=== PATIENT | male | born 1990 | race Caucasian/White ===

== ENCOUNTER 2017-08-25 16:58 | Inpatient (IN) | payer OTHER ==
[2017-08-25 17:28] LABS: % IMMATURE GRANULYOCYTES 0.4 % (0.0-1.1); ABSOLUTE IMMATURE GRANULOCYTES 0.04 10^3/uL (0.00-0.10); ADD DIFF? NO; ADD MORPH? NO; ADD SCAN? NO; ATYPICAL LYMPHOCYTE FLAG 10 (0-99); FRAGMENT RBC FLAG 0 (0-99); HEMATOCRIT 47.6 % (40.0-51.0); HEMOGLOBIN 17.3 g/dL (13.7-17.5); LEFT SHIFT FLG 0 (0-99); LIPEMIA HEMOLYSIS FLAG 90 (0-99); MEAN CELL HEMOGLOBIN 31.1 pg (27.9-34.1); MEAN CELL HEMOGLOBIN CONCENTR. 36.3 g/dL (32.4-36.7); MEAN CELL VOLUME 85.6 fL (81.5-99.8); MEAN PLATELET VOLUME 10.2 fL (8.7-11.7); PLATELET CLUMPS FLAG 10 (0-99); PLATELET COUNT 274 10^3/uL (150-400); RED BLOOD CELL COUNT 5.56 10^6/uL (4.40-6.38); RED CELL DISTRIBUTION WIDTH 11.8 % (11.5-15.2)
--- NOTE | 2017-08-25 17:31 | EDPHY ---
H & P Stated Complaint: M1 - Medical/Surgical History Other PMH: denies. - Social History Smoking Status: Never smoked Time Seen by Provider: 08/25/17 17:31 Constitutional: Initial Vital Signs Temperature (C) 37.0 C 08/25/17 17:35 Heart Rate 68 08/25/17 17:35 Respiratory Rate 18 08/25/17 17:35 Blood Pressure 159/80 H 08/25/17 17:35 O2 Sat (%) 95 08/25/17 17:35 O2 Delivery Mode Room Air Allergies/Adverse Reactions: No Known Allergies Allergy (Unverified 08/25/17 17:23) Medical Decision Making ED Course/Re-evaluation: CHIEF COMPLAINT: Psychiatric evaluation HISTORY OF PRESENT ILLNESS: 26-year-old gentleman who is having some anger issues at home. He has been having some difficulties living on his own. His family has requested that he come to the emergency department and had him brought here. He apparently supposed to be taking some psychiatric medicines and seen a psychiatrist but he has not followed through with that. Patient denies suicidality homicidality. REVIEW OF SYSTEMS: A 10 point review of systems was performed and is negative with the exception of the elements mentioned in the history of present illness. PHYSICAL EXAM: General Appearance: Alert, well hydrated, appropriate, and non-toxic appearing. Head: Atraumatic without scalp tenderness or obvious injury Eyes: Pupils equal, round, reactive to light and accommodation, EOMI, no trauma , no injection. Ears: Clear bilaterally, no perforation, normal landmarks Nose: Atraumatic, no rhinorrhea, clear. Throat: There is no erythema or exudates, no lesions, normal tonsils, mucus membranes moist. Neck: Supple, 2+ carotid upstroke, nontender, no lymphadenopathy. Respiratory: No retractions, no distress, no wheezes, and no accessory muscle use. Lungs are clear to auscultation bilaterally. Cardiovascular: Regular rate and rhythm, no murmurs, rubs, or gallops. Bilateral carotid, radial, dorsalis pedis, and posterior tibial pulses intact. Good capillary refill all extremities. Gastrointestinal: Abdomen is soft, nontender, non-distended, no masses, no rebound, no guarding, no peritoneal signs. Musculoskeletal: Normal active ROM of all extremities, atraumatic. Neurological: Alert, appropriate, and interactive. The patient has normal DTRs and non-focal cranial nerves, motor, sensory, and cerebellar exam. Skin: No rashes, good turgor, no nodules on palpation. Past medical history: Psychiatric problems Past surgical history: Noncontributory Family history: Noncontributory Social history: Single, employed, Student, lives on her own DIFFERENTIAL DIAGNOSIS: The differential diagnosis for the patient's depression included but was not limited to functional and major depression, situational depression, medication side effect, drugs, and alcohol abuse. MEDICAL DECISION MAKING: Patient is in no acute distress and is hemodynamically stable. We are awaiting psychiatric team's evaluation. Patient has known history of psychiatric disorders and is here for evaluation. (Chinedu Calloway) Other Provider: I assumed care of this patient from Dr. Calloway at 9:00 p.m.. At 11:15 p.m., the patient has been medically cleared and is undergoing evaluation with [facility]. He has on a M1 hold placed by the police. Patient had presented with anger management issues, delusions, and is a danger to himself. Care was assumed by Dr. Dominga Waldron at 11:20 p.m. (Annalee Galvez) The patient was stable throughout my shift. He was accepted at [address] [place] [address] for inpatient hospitalization. I completed the EMTALA form. (Dominga Waldron) - Data Points Laboratory Results: Laboratory Results 08/25/17 17:10 08/25/17 17:10 08/25/17 21:30 Urine Opiates Screen NEGATIVE (NEGATIVE) Urine Barbiturates NEGATIVE (NEGATIVE) Ur Phencyclidine Scrn NEGATIVE (NEGATIVE) Ur Amphetamine Screen NEGATIVE (NEGATIVE) U Benzodiazepines Scrn NEGATIVE (NEGATIVE) Urine Cocaine Screen NEGATIVE (NEGATIVE) U Marijuana (THC) Screen NEGATIVE (NEGATIVE) Medications Given: Discontinued Medications Lorazepam (Ativan) 1 mg PO EDNOW ONE Stop: 08/26/17 02:08 Last Admin: 08/26/17 02:11 Dose: 1 mg Departure - Departure Disposition: [facility] IP Clinical Impression: Acute psychosis Condition: Good
[2017-08-25 17:35] LABS: ANION GAP 15 mEq/L (8-16); CALCIUM 10.2 mg/dL (8.5-10.4); CARBON DIOXIDE 20 mEq/l (22-31); CHLORIDE 109 mEq/L (97-110); CREATININE 1.1 mg/dL (0.7-1.3); ETHANOL SERUM < 10 mg/dL (0-10); GLOMERULAR FILTRATION RATE > 60; GLUCOSE 89 mg/dL (70-100); POTASSIUM 3.8 mEq/L (3.5-5.2); SODIUM 144 mEq/L (134-144)
[2017-08-26] MEDS ORDERED: LORazepam 1 MG TAB PO ONE (02:07)
[2017-08-26] MEDS ORDERED: MAG HYDROX/AL HYDROX/SIMETH 30 ML UDCUP PO PRN (03:58)
[2017-08-26] MEDS ORDERED: NICOTINE POLACRILEX 2 MG GUM B PRN (03:58)
[2017-08-26] MEDS ORDERED: ACETAMINOPHEN 325 MG TAB PO PRN (03:58)
[2017-08-26] MEDS ORDERED: LORazepam 0.5 MG TAB PO PRN (03:58)
[2017-08-26] MEDS ORDERED: MAGNESIUM HYDROXIDE 30 ML UDCUP PO PRN (03:58)
[2017-08-26] MEDS ORDERED: FLU VACC QS 2017-18 (3YR+)/PF 0.5 ML SYR (FLUARIX QUAD) IM ONE (09:38)
[2017-08-26] MEDS ORDERED: LORazepam 1 MG TAB PO PRN (10:51)
[2017-08-26] MEDS: SERTRALINE HCL 25 MG TAB PO SCH (11:20)
[2017-08-26] MEDS: ARIPiprazole 5 MG TAB PO SCH (11:20)
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
[2017-08-27] MEDS: SERTRALINE HCL 25 MG TAB PO SCH (08:43)
[2017-08-27] MEDS: ARIPiprazole 5 MG TAB PO SCH (08:43)
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
[2017-08-27] MEDS ORDERED: ARIPiprazole 5 MG TAB PO ONE (09:45)
[2017-08-28] MEDS ORDERED: ARIPiprazole 5 MG TAB PO SCH ×2 (08:00→09:00)
[2017-08-28] MEDS: SERTRALINE HCL 25 MG TAB PO SCH (08:02)
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
[2017-08-28] MEDS ORDERED: LORazepam 1 MG TAB PO PRN (09:25)
[2017-08-28] MEDS ORDERED: ARIPiprazole 5 MG TAB PO ONE (09:30)
[2017-08-29] MEDS: SERTRALINE HCL 25 MG TAB PO SCH (08:20)
[2017-08-29] MEDS: ARIPiprazole 5 MG TAB PO SCH (08:21)
--- NOTE | 2017-08-29 13:45 | SOAPPROG ---
SOAP Progress Note Assessment/Plan: Assessment: Per Dr. Dwyer's note from 08/28/17: Schizoaffective Disorder Patient was admitted on M1 hold for destroying property in outpatient clinic , disorganization, paranoia, violent thoughts, not eating or sleeping for 2 weeks concurrent with non-compliance with Abilify and Zoloft. Patient appears more appropriate and somewhat more organized but continues to have paranoia and disorganized thinking; patient has poor insight and difficulty attending groups. Patient denies HI or violent thoughts today and has been sleeping on unit but continued poor PO intake. Plan: Education about Schizoaffective Disorder Education about benefit of medication compliance Encouraged PO intake, ordered staff to document % meals taken Encouraged showering and hygiene Increase Abilify 15mg PO QAM Continue Sertraline 25mg PO QAM Start Hydroxyzine 25mg PO Q6 PRN anxiety Change Ativan 1mg QHS PRN insomnia PIA signed to obtain last medication list for [facility] Filed [facility] for grave disability, patient doesn't want continued inpatient Contact family regarding daily supervision or residential care after discharge 08/29/17 13:41 1. CCM - patient slightly improved on Abilify and Zoloft, less anxious Subjective: Met with patient, reviewed chart and d/w staff. Patient says he feels "good" and that "people here are very nice." But then says, "I don't think things are better." He says he feels "like my parents have too much control of me." He claims he is upset b/c his FOC appeared "happy to see me in handcuffs." He denies any SI/HI. Objective: Vital Signs Temp Pulse Resp BP Pulse Ox 36.3 C 66 12 142/72 H 98 08/29/17 05:55 08/29/17 08:00 08/29/17 08:00 08/29/17 08:00 08/29/17 08:00 MSE: Affect: Flat Mood: "Good" TP: Disorganized, tangential TC: Denies any SI /HI, no AH/VH, delusional Insight/Judgment: Impaired - Time Spent With Patient Time Spent With Patient: 20" - Pending Discharge Pending Discharge Within 24 Hours: No Pending Discharge Within 48 Hours: No ICD10 Worksheet Patient Problems: Problems Problem Status Onset Schizoaffective disorder Acute
[2017-08-30] MEDS: ARIPiprazole 5 MG TAB PO SCH (09:04)
[2017-08-30] MEDS: SERTRALINE HCL 25 MG TAB PO SCH (09:04)
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
[2017-08-31] MEDS: ARIPiprazole 5 MG TAB PO SCH (08:23)
[2017-08-31] MEDS: SERTRALINE HCL 25 MG TAB PO SCH (08:30)
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
[2017-09-01] MEDS: ARIPiprazole 5 MG TAB PO SCH (08:14)
[2017-09-01] MEDS: SERTRALINE HCL 25 MG TAB PO SCH (08:14)
--- NOTE | 2017-09-01 10:30 | SOAPPROG ---
SOAP Progress Note Assessment/Plan: Assessment: Schizoaffective Disorder History of cannabis use disorder Patient was admitted on M1 hold for destroying property in outpatient MH clinic , disorganization, paranoia, violent thoughts, not eating or sleeping for 2 weeks concurrent with non-compliance with Abilify and Zoloft. Patient currently on short term certification. Patient has been sleeping and eating well, calm on unit and cooperative with medication. Patient appears to have residual symptoms (apathy, mild thought disorder) but no recent dangerous statements or behaviors. Patient has borderline HTN but no other symptoms of EPS/NMS. Plan: Education about Schizoaffective Disorder and dangers of cannabis Continue Abilify 15mg PO QAM Continue Sertraline 25mg PO QAM Family meeting to discharge discharge plan. Patient would benefit from residential placement for daily medication monitoring and assistance with meals and MH follow up. If unable to discharge into a residential program will recommend daily visits. 09/01/17 10:30 Subjective: "I'm alright but I think marijuana isn't classified correctly" Patient reports sleeping well overnight. Denies somatic complaints. Denies anxiety or paranoia or AH. Reports he is willing to take psychiatric medications after discharge. Unable to explain how he would obtain meals or receive follow up MH care after discharge. Denies agitation or irritability or violent thoughts. Reports he wants to be able to use cannabis after discharge. Reports he is willing to meet with father for family meeting to review discharge plan. Objective: Vital Signs Temp Pulse Resp BP Pulse Ox 36.8 C 57 L 14 129/60 H 98 08/31/17 15:57 08/31/17 15:57 08/31/17 15:57 08/31/17 15:57 08/31/17 15:57 ALert WM, poor dentition. Cooperative and calm. No tremors or restlessness. Speech RRR. Mood 'alright' Affect odd. Thoughts organized but poverty of detail/content. Denies SI or HI or AH. Limited insight. Denies paranoia. Judgment appropriate. Staff reports patient slept 10-12 hours, eating 100% meals. - Time Spent With Patient Time Spent With Patient: 35min - Pending Discharge Pending Discharge Within 24 Hours: Yes Pending Discharge Date: 09/02/17 Pending Discharge Time: 11:00 ICD10 Worksheet Patient Problems: Problems Problem Status Onset Schizoaffective disorder Acute
[2017-09-01] MEDS: hydrOXYzine HCL 25 MG TAB PO PRN (14:31)
[2017-09-01] MEDS: DIVALPROEX NA 500 MG TAB PO SCH ×2 (14:45→20:44)
[2017-09-02] MEDS: DIVALPROEX NA 500 MG TAB PO SCH ×2 (08:20→17:48)
[2017-09-02] MEDS: ARIPiprazole 10 MG TAB PO SCH (08:20)
--- NOTE | 2017-09-02 08:59 | SOAPPROG ---
SOAP Progress Note Assessment/Plan: Assessment: Schizoaffective Disorder History of cannabis use disorder Patient was admitted on M1 hold for destroying property in outpatient clinic , disorganization, paranoia, violent thoughts, not eating or sleeping for 2 weeks concurrent with non-compliance with Abilify and Zoloft. Patient currently on short term certification. Patient has been sleeping and eating well, has continued disorganized/illogical thinking, had severe paranoia and agitation and explosive behavior yesterday during family meeting - refused PM groups, made paranoid statements. Plan: Education about Schizoaffective Disorder and dangers of cannabis Continue Abilify 20mg PO QAM (dose increased today) Continue Depakote 500mg BID (started 09/01) Check Depakote level 09/04 if compliant Monitor behavior and thought organization and judgment regarding discharge planning Court hearing 09/07 @ 3:30 for certification 09/02/17 09:00 Subjective: "I'm alright" Patient reports explosive anger yesterday (ripped off hospital braclet, screaming paranoid statements toward parents and treatment team, slamming doors ) was related to 'people don't understand me, they don't understand my lifestyle , this is bullshit.' Reports he is willing to take medication at this time. Unable to explain where he would go if he is discharged, reports he doesn't want to go to residential or live near parents for monitoring. Denies physical complaints. Denies side effects from Depakote. Objective: Vital Signs Temp Pulse Resp BP Pulse Ox 36.6 C 80 14 133/75 H 97 09/02/17 00:30 09/02/17 00:30 09/02/17 00:30 09/02/17 00:30 09/02/17 00:30 Alert WM cooperative. Calm without tremors or restlessness. Speech RRR. Mood 'alright.' Affect briefly irritable. Thoughts disorganized with occasional loose association, illogical at times. Denies SI or HI or AH. Some paranoia toward parents, doctors, medications. Poor insight. Impaired judgment. Staff reports patient took 1st Depakote dose yesterday afternoon along with PRN hydroxyzine for agitation, paranoia after yelling and slamming doors, but then refused PM group, made paranoid statements about nursing staff trying to harm him. Patient complied with AM depakote and AM Abilify today. Patient eating 75%-100% of meals - Time Spent With Patient Time Spent With Patient: 20 - Pending Discharge Pending Discharge Within 24 Hours: No Pending Discharge Within 48 Hours: No Physical Exam - Physical Exam General Appearance: WD/WN, alert, no apparent distress Neuro/Psych: no motor/sensory deficits, oriented x 3 ICD10 Worksheet Patient Problems: Problems Problem Status Onset Schizoaffective disorder Acute
[2017-09-03] MEDS: DIVALPROEX NA 500 MG TAB PO SCH ×2 (08:36→17:13)
[2017-09-03] MEDS: ARIPiprazole 10 MG TAB PO SCH (08:36)
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
[2017-09-04] MEDS: ARIPiprazole 10 MG TAB PO SCH (08:26)
[2017-09-04] MEDS: DIVALPROEX NA 500 MG TAB PO SCH ×2 (08:27→18:43)
[2017-09-04 08:42] LABS: ALANINE AMINOTRANSFERASE 29 IU/L (21-72); ALBUMIN 3.6 g/dL (3.5-5.0); ALKALINE PHOSPHATASE 43 IU/L (38-126); ASPARTATE AMINOTRANSFERASE 16 IU/L (17-59); BILIRUBIN,TOTAL 0.9 mg/dL (0.1-1.4); BILIRUBIN-CONJUGATED 0.2 mg/dL (0.0-0.5); BILIRUBIN-UNCONJUGATED 0.7 mg/dL (0.0-1.1); TOTAL PROTEIN 5.7 g/dL (6.3-8.2)
--- NOTE | 2017-09-04 10:47 | SOAPPROG ---
SOAP Progress Note Assessment/Plan: Assessment: Schizoaffective Disorder History of cannabis use disorder Patient was admitted on M1 hold for destroying property in outpatient clinic , disorganization, paranoia, violent thoughts, not eating or sleeping for two weeks. Patient reportedly evicted from his apartment. Patient currently on short term certification. Patient had severe agitation, disorganization, and explosive behavior on during family meeting with parents and therapist. Patient reportedly was previously discharged from [facility] on Abilify and Depakote over a year ago. Patient appears illogical and unable to discuss discharge planning options coherently or consistently. Patient would likely decompensate quickly if discharged to a homeless fpc without close medication monitoring and support. Patient has been eating and sleeping well and calm on unit but unable to explain how he would obtain food or fpc if discharged. Plan: Change vitals Qshift Education about Schizoaffective Disorder and dangers of cannabis, importance of medication compliance Continue Abilify 30mg PO QAM, recently increased due to paranoia/AH and disorganized thinking Continue Depakote 500mg BID, started 09/[address] hearing 09/07 @ 3:30 for certification If stable over weekend and through Thursday certification hearing, plan another family meeting to review discharge planning if patient more organized and logical when discussing discharge options 09/04/17 10:47 Subjective: "I'm fine" Reports 'my parents are condescending.' Alternatively reports he is willing to go to [facility] in order to continue attending classes at , then reports wanting to live independently and "i don't want to be told what to do' but unable to explain how he would pay for or find independent housing. Denies restlessness or stiffness. Denies AH or paranoia. 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 Denies plan to hurt self or others if not in the hospital. Unable to explain where he would go or how he would obtain food or fpc if not in the hospital (patient cannot return to apartment, it was in disarray, parents will not pay for apartment unless patient discharges to residential supervision short term). Objective: Vital Signs Temp Pulse Resp BP Pulse Ox 36.7 C 57 L 14 129/64 H 96 09/04/17 06:16 09/04/17 06:16 09/04/17 06:16 09/04/17 06:16 09/03/17 11:03 Alert WM cooperative, poor dentition. Speech RRR. Mood 'I'm fine" Affect odd , restricted. Thoughts organized with occasional loose association. Denies SI or HI. Denies AH or paranoia. Make odd statements at times. Insight limited. Judgment questionable. Staff report patient slept 9 hours, calm on unit. Today Depakote level 58, LFTs WNL - Time Spent With Patient Time Spent With Patient: 20 - Pending Discharge Pending Discharge Within 24 Hours: No Pending Discharge Within 48 Hours: No ICD10 Worksheet Patient Problems: Problems Problem Status Onset Schizoaffective disorder Acute
[2017-09-05] MEDS: ARIPiprazole 10 MG TAB PO SCH (09:03)
[2017-09-05] MEDS: DIVALPROEX NA 500 MG TAB PO SCH ×2 (09:03→17:44)
--- NOTE | 2017-09-05 21:31 | SOAPPROG ---
SOAP Progress Note Assessment/Plan: Assessment: 26yo SWM with Schizoaff D/O and poor insight into illness, admitted on M-1, was incr manic and psychotic, destroyed property in therapist's office, disorganized , paranoid, not eating/sleeping, poor hygiene, apartment in disarray, possible eviction, THC paraphenalia. On STC, restarted on Abilify, now on Depakote since 09/01 after explosive agitation during family meeting. 09/05/17 12:12 per staff, pt slept 9hr. taking meds. eating meals On evaluation, pt. reports feeling "angry about being here, it's frustrating...I 've been here too long." Reports being admitted to psych hosp "because I was smoking weed at work, making a bunch of money for [employer] and they didn't understand it...I got sleep deprived...I was claiming things that were not true" "My issue is my parents...if I choose not to use (THC) that would be best for me , but if I do, I'm not bad". Expresses some insight into BMD dx, "I think it's fair (this diagnosis), but what's unfair is that I'm receiving more mental health attention than my parents...they're pretty sad people, I believe in fairness more than genetics". Proceeded to explain how he doesn't understand why his parents think he's unproductive while he is able to take college courses in the midst of relapsing... Attending groups, participating, "I think I'm viewed almost like staff here...I have better coping strategies" than many peers on unit, gives example of how another patient listens to redirection from him- "I told him to respect women, and he's been responsive". Denied med s/e. no evid of EPS. Denied physical complaints. MSE: cooperative, casually dressed, in behav control, nml psychom acitvity, nml speech rate/vol, mood "off and on", affect somewhat intense shoshana as expressing frustration with parents and hospitalization, and blaming parents and sleep deprivation for being in hosp, tp/tc- some grandiosity, no overt delusions expressed, denied ah/vh or si/hi, impaired insight, impaired jdmgt. cognition conversationally intact . Plan: cont current meds; VPA 59 after 3d, consider incr STC hearing Mon 09/07 Objective: Vital Signs Temp Pulse Resp BP Pulse Ox 36.7 C 67 14 140/72 H 98 09/04/17 06:16 09/05/17 06:00 09/05/17 06:00 09/05/17 06:00 09/05/17 06:00 - Time Spent With Patient Time Spent With Patient: 25min - Pending Discharge Pending Discharge Within 24 Hours: No Pending Discharge Within 48 Hours: No ICD10 Worksheet Patient Problems: Problems Problem Status Onset Schizoaffective disorder Acute
[2017-09-06] MEDS: ARIPiprazole 10 MG TAB PO SCH (08:25)
[2017-09-06] MEDS: DIVALPROEX NA 500 MG TAB PO SCH ×2 (08:25→17:03)
[2017-09-06] MEDS: hydrOXYzine HCL 25 MG TAB PO PRN (13:47)
[2017-09-06] MEDS ORDERED: LORazepam 1 MG TAB PO ONE (14:15)
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
[2017-09-07] MEDS: DIVALPROEX NA 500 MG TAB PO SCH ×2 (08:27→17:01)
[2017-09-07] MEDS: ARIPiprazole 10 MG TAB PO SCH (08:27)
--- NOTE | 2017-09-07 09:12 | SOAPPROG ---
SOAP Progress Note Assessment/Plan: Assessment: Schizoaffective Disorder History of cannabis use disorder Patient was admitted on M1 hold for destroying property in outpatient clinic , disorganization, paranoia, violent thoughts, not eating or sleeping for two weeks. Patient reportedly evicted from his apartment. Patient currently on short term certification. Patient was reportedly labile and agitated over weekend, Depakote increased 1500mg/day and Abilify continued. Patient this AM appears calm but still illogical regarding discharge planning. Plan: Discussed motivation for sob Education about Schizoaffective Disorder and dangers of cannabis, importance of medication compliance Continue Abilify 30mg PO QAM Continue Depakote 500mg QAM and 1000mg QHS, increased 09/05/2017 [address] hearing 09/07 @ 3:30 for certification - patient reportedly stipulated If stable over next 48 hours plan discharge either to [facility] or home with parents if patient consistently agreeable 09/07/17 09:09 Subjective: "I'm alright" Patient endorses mood swings, with tearfulness, irritability, and yelling over weekend. Reports tolerating increased Depakote dose without side effects. Reports sleeping well. Reports alternatively wanting to go to [facility] residential program, then reports not wanting to go to 'live with my own independence' but unable to explain how he would obtain correction or food if discharged. Denies paranoia or AH or dangerous thoughts. Objective: Vital Signs Temp Pulse Resp BP Pulse Ox 36.4 C 72 16 123/68 H 99 09/07/17 06:00 09/07/17 06:00 09/07/17 06:00 09/07/17 06:00 09/07/17 06:00 ALert WM poor dentition. Speech RRR, loud at times. Mood 'alright.' Affect euthymic, briefly irritable. Thoughts organized but tangential at times, occasional loose association. Denies SI or HI. Denies AH or paranoia. Poor insight. Questionable judgment. - Time Spent With Patient Time Spent With Patient: 30 - Pending Discharge Pending Discharge Within 24 Hours: No Pending Discharge Within 48 Hours: No ICD10 Worksheet Patient Problems: Problems Problem Status Onset Schizoaffective disorder Acute
[2017-09-07 09:22] LABS: % IMMATURE GRANULYOCYTES 0.2 % (0.0-1.1); ABSOLUTE IMMATURE GRANULOCYTES 0.01 10^3/uL (0.00-0.10); ADD DIFF? NO; ADD MORPH? NO; ADD SCAN? NO; ATYPICAL LYMPHOCYTE FLAG 20 (0-99); FRAGMENT RBC FLAG 0 (0-99); HEMATOCRIT 46.4 % (40.0-51.0); HEMOGLOBIN 16.1 g/dL (13.7-17.5); LEFT SHIFT FLG 0 (0-99); LIPEMIA HEMOLYSIS FLAG 90 (0-99); MEAN CELL HEMOGLOBIN 30.4 pg (27.9-34.1); MEAN CELL HEMOGLOBIN CONCENTR. 34.7 g/dL (32.4-36.7); MEAN CELL VOLUME 87.5 fL (81.5-99.8); MEAN PLATELET VOLUME 10.5 fL (8.7-11.7); PLATELET CLUMPS FLAG 0 (0-99); PLATELET COUNT 229 10^3/uL (150-400); RED CELL DISTRIBUTION WIDTH 12.2 % (11.5-15.2)
[2017-09-07 12:50] LABS: ALANINE AMINOTRANSFERASE 26 IU/L (21-72); ALBUMIN 4.3 g/dL (3.5-5.0); ALKALINE PHOSPHATASE 43 IU/L (38-126); ANION GAP 17 mEq/L (8-16); ASPARTATE AMINOTRANSFERASE 18 IU/L (17-59); BILIRUBIN,TOTAL 0.9 mg/dL (0.1-1.4); CALCIUM 10.1 mg/dL (8.5-10.4); CARBON DIOXIDE 22 mEq/l (22-31); CHLORIDE 108 mEq/L (97-110); GLOMERULAR FILTRATION RATE > 60; GLUCOSE 85 mg/dL (70-100); POTASSIUM 4.6 mEq/L (3.5-5.2); SODIUM 147 mEq/L (134-144); TOTAL PROTEIN 6.5 g/dL (6.3-8.2)
[2017-09-07] MEDS: OLANZapine 5 MG TAB PO PRN ×2 (21:04→22:03)
[2017-09-08] MEDS: DIVALPROEX NA 500 MG TAB PO SCH ×2 (08:26→17:13)
[2017-09-08] MEDS: ARIPiprazole 10 MG TAB PO SCH (08:26)
--- NOTE | 2017-09-08 08:46 | SOAPPROG ---
SOAP Progress Note Assessment/Plan: Assessment: Schizoaffective Disorder History of cannabis use disorder Patient was admitted on M1 hold for destroying property in outpatient clinic , disorganization, paranoia, violent thoughts, not eating or sleeping for two weeks. Patient reportedly evicted from his apartment. Patient currently on short term certification. Patient was briefly agitated last night and got PRN medication; patient currently appears calm and able to talk through discharge planning, including expectations/rules in residential treatment programs. 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 Reports during that episode feeling agitated and talked to staff, received Olanzapine 5mg and Ativan 1mg, slept through night. This AM reports feeling calm. Denies feeling agitated or irritable or depressed. Reports he is willing to stop cannabis 'short term, to get a job' after discharge and is willing to go to [facility] residential progam. Denies any plan or intent to harm himself or others if discharged. Reports feeling tired this AM but denies any other physical complaints. Objective: Vital Signs Temp Pulse Resp BP Pulse Ox 36.3 C 59 L 16 123/68 H 96 09/08/17 06:16 09/08/17 06:16 09/08/17 06:16 09/07/17 06:00 09/08/17 06:16 Laboratory Results 09/07/17 Unknown 09/07/17 Unknown Tired appearing WM. Cooperative and pleasant and calm. Speech RRR. Mood 'a little groggy, calm' endorses feeling irritable last night with another patient. Affect restricted. Thoughts briefly organized with a poverty of content. Denies SI or HI or AH. Denies paranoia. Poor insight. Appropriate judgment. - Time Spent With Patient Time Spent With Patient: 20 - Pending Discharge Pending Discharge Within 24 Hours: No Pending Discharge Within 48 Hours: Yes Pending Discharge Date: 09/09/17 Pending Discharge Time: 11:00 ICD10 Worksheet Patient Problems: Problems Problem Status Onset Schizoaffective disorder Acute
--- NOTE | 2017-09-08 09:10 | PDMN ---
Medical Necessity Medical necessity: Spoke to insurance psychiatrist. Patient approved for . If patient not discharged 09/09/17 will need further review by insurance.
[2017-09-09 06:20] VITALS: BP 134/75; PULSE 60; RESP 17; TEMP 97.6; O2SAT 98
[2017-09-09] MEDS: DIVALPROEX NA 500 MG TAB PO SCH (09:29)
[2017-09-09] MEDS: ARIPiprazole 10 MG TAB PO SCH (09:29)
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
== END 2017-09-09 10:35 | DRG 885 ==
LOC: BBEH 08-26 03:15
PROVIDERS: ADMIT Psychiatry & Neurology Behavioral Neurology & Neuropsychiatry
DX: F25.0 Schizoaffective disorder, bipolar type (principal); K08.89 Other specified disorders of teeth and supporting structures; F12.90 Cannabis use, unspecified, uncomplicated
CPT/HCPCS: 80305; 82607-90; G0008; G0480

== ENCOUNTER 2018-10-28 17:52 | Emergency (ER) | payer OTHER ==
[2018-10-28] MEDS ORDERED: TDAP ADULT 0.5 ML INJ (BOOSTRIX) IM ONE (18:10)
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
[2018-10-28 18:49] VITALS: BP 128/71
== END 2018-10-28 18:50 | disposition home or self-care (01) ==
LOC: EDUNIT#
DX: S00.81XA Abrasion of other part of head, initial encounter (principal); S00.01XA Abrasion of scalp, initial encounter; V13.4XXA Pedal cycle driver injured in collision with car, pick-up truck or van in traffic accident, initial encounter; Y92.410 Unspecified street and highway as the place of occurrence of the external cause; Z23 Encounter for immunization